=== PATIENT | male | born 1965 | race Caucasian/White ===

== ENCOUNTER 2018-12-30 23:00 | Emergency (ER) | payer OTHER ==
[2018-12-30 23:11] VITALS: RESP 18
[2018-12-30] MEDS ORDERED: MORPHINE SULFATE 10 MG/ML SOL IM ONE (23:20)
[2018-12-30] MEDS ORDERED: MORPHINE SULFATE 10 MG/ML SOL ONE (23:23)
[2018-12-30] MEDS ORDERED: HYDROMORPHONE HYDROCHLORIDE 2 MG TAB PO ONE (23:59)
[2018-12-31] MEDS ORDERED: HYDROMORPHONE HYDROCHLORIDE 2 MG TAB PO ONE ×3 (00:02→00:43)
[2018-12-31] MEDS ORDERED: TDAP VACCINE 0.5 ML SUS IM ONE ×2 (00:28→00:30)
[2018-12-31 01:17] VITALS: O2SAT 98
[2018-12-31 01:18] VITALS: BP 126/72; PULSE 72; TEMP 97.6
[2018-12-31] MEDS ORDERED: CEFAZOLIN SODIUM 1 GM PDS ONE (15:30)
[2018-12-31] MEDS ORDERED: ONDANSETRON HCL 4 MG/2 ML SOL ONE (15:36)
[2018-12-31] MEDS ORDERED: PROPOFOL 500 MG/50 ML EMU IV ONE (16:07)
[2018-12-31] MEDS ORDERED: PROPOFOL 10 MG/ML 200 MG/20 ML EMU IV ONE (17:07)
== END 2018-12-31 01:00 | disposition home or self-care (01) | DRG 561 ==
LOC: ED 23:00
DX: S82.842D Displaced bimalleolar fracture of left lower leg, subsequent encounter for closed fracture with routine healing (principal)
CPT/HCPCS: 73610; 90715; 99285; G0390; J0690; J2270; J2405; A9270-GY; J2704

== ENCOUNTER 2018-12-31 11:47 | Day surgery (SDC) | payer OTHER ==
[2018-12-31] MEDS ORDERED: FENTANYL 100MCG/2ML SOL ONE (14:25)
[2018-12-31] MEDS ORDERED: MIDAZOLAM 2 MG/2 ML SOL ONE (14:25)
[2018-12-31 14:31] VITALS: RESP 16
[2018-12-31] MEDS ORDERED: BUPIVACAINE HCL 0.25% MPF 30 ML SOL INFIL ONE (15:00)
[2018-12-31 22:05] VITALS: O2SAT 95
[2018-12-31 22:48] VITALS: BP 158/98; PULSE 76; TEMP 98.3
== END 2018-12-31 22:23 | disposition home or self-care (01) | DRG 561 ==
LOC: SURG 11:47 → EDSTATUS 15:00 → SURG 22:23
PROVIDERS: ATTEND Orthopaedic Surgery
DX: S82.842D Displaced bimalleolar fracture of left lower leg, subsequent encounter for closed fracture with routine healing (principal)
CPT/HCPCS: 73600; 76000; J2250; J3010

== ENCOUNTER 2019-01-07 10:47 | Outpatient (CLI) | payer OTHER | END 2019-01-07 10:48 | disposition home or self-care (01) | DRG 950 | LOC: CONVCARE 10:47 | PROVIDERS: ATTEND Orthopaedic Surgery | DX: Z51.89 Encounter for other specified aftercare (principal); S82.842D Displaced bimalleolar fracture of left lower leg, subsequent encounter for closed fracture with routine healing | CPT/HCPCS: 73610 ==

== ENCOUNTER 2019-02-04 08:46 | Outpatient (CLI) | payer OTHER | END 2019-02-04 08:47 | disposition home or self-care (01) | DRG 561 | LOC: CONVCARE 08:46 | PROVIDERS: ATTEND Orthopaedic Surgery | DX: S82.842D Displaced bimalleolar fracture of left lower leg, subsequent encounter for closed fracture with routine healing (principal) | CPT/HCPCS: 73610 ==

== ENCOUNTER 2019-03-11 09:24 | Outpatient (CLI) | payer OTHER | END 2019-03-11 09:25 | disposition home or self-care (01) | DRG 561 | LOC: CONVCARE 09:24 | PROVIDERS: ATTEND Orthopaedic Surgery | DX: S82.842D Displaced bimalleolar fracture of left lower leg, subsequent encounter for closed fracture with routine healing (principal) | CPT/HCPCS: 73610 ==

== ENCOUNTER 2019-04-22 09:31 | Outpatient (CLI) | payer OTHER | END 2019-04-22 09:32 | disposition home or self-care (01) | DRG 561 | LOC: CONVCARE 09:31 | PROVIDERS: ATTEND Orthopaedic Surgery | DX: S82.842D Displaced bimalleolar fracture of left lower leg, subsequent encounter for closed fracture with routine healing (principal); Z98.890 Other specified postprocedural states; S93.432D Sprain of tibiofibular ligament of left ankle, subsequent encounter | CPT/HCPCS: 73610 ==